=== PATIENT | male | born 1955 | race Caucasian/White ===

== ENCOUNTER 2016-10-28 15:21 | Outpatient (CLI) | END 2016-10-28 15:22 | disposition home or self-care (01) | LOC: LAB 15:21 | PROVIDERS: ATTEND Family Medicine | DX: R19.7 Diarrhea, unspecified (principal) ==

== ENCOUNTER 2017-05-17 16:48 | Emergency (ER) ==
[2017-05-17 16:55] VITALS: BP 166/96; TEMP 98.7; BMI 20.7
[2017-05-17] MEDS ORDERED: LEVAQUIN PO STA (17:26)
--- NOTE | 2017-05-17 17:31 | ED.PDOC ---
General ED Provider: Dr. PIERRE RIVAS Chief Complaint: Sore Throat Stated Complaint: flu like symptoms Time Seen by Physician: 17:00 (seen with mat at all times . his also has similar cold congestion in ED ) Mode of Arrival: Walk-In Information Source: Patient Exam Limitations: No limitations Primary Care Provider: MARILU JOSE Referred to ED by: Other ( WITH COLD SYMP ) Nursing and Triage Documentation Reviewed and Agree: Yes Reviewed sepsis parameters & appropriate labs ordered?: Yes System Inflammatory Response Syndrome: Not Applicable Sepsis Protocol: For patient's 13 years and over: Temp is 96.8 and below OR 101 and greater Pulse >90 BPM Resp >20/minute Acutely Altered Mental Status Are patient's symptoms suggestive of a new infection, such as: -Pneumonia -Skin, Soft Tissue -Endocarditis -UTI -Bone, Joint Infection -Implantable Device -Acute Abdominal Infection -Wound Infection -Meningitis -Blood Stream Catheter Infection -Unknown Respiratory Complaint Exam - Respiratory Complaint/Exam Onset/Duration: flu like symptoms x 3 days Symptoms Are: Still present Timing: Intermittent Initial Severity: Mild Current Severity: Mild Location: Nose, Throat, Chest Character: Reports: Non-productive cough Aggravating: Reports: URI Alleviating: Reports: None Associated Signs and Symptoms: Reports: Fever (no temp taken), URI, Nasal congestion. Denies: Rapid breathing, Dyspnea, Chills, Chest pain, Pleuritic chest pain, Wheezing, Hemoptysis, Dizziness, Calf pain, Calf swelling, Edema, Hoarseness, Sinus discomfort, Vomiting, Sore throat, Weight loss, Decreased oral intake, Increased thirst, Increased appetite, Increased urination History of Healthcare-Acquired Pneumonia: No Related Surgical History: Reports: None Pulmonary Embolism Risk Factors: None Review of Systems - Review Of Systems Constitutional: Reports: Chills, Malaise Eyes: Reports: No symptoms Ears, Nose, Mouth, Throat: Reports: No symptoms Respiratory: Reports: Cough Cardiac: Reports: No symptoms GI: Reports: No symptoms : Reports: No symptoms Musculoskeletal: Reports: No symptoms Skin: Reports: No symptoms Neurological: Reports: No symptoms Endocrine: Reports: No symptoms Hematologic/Lymphatic: Reports: No symptoms All Other Systems: Reviewed and Negative Past Medical History - Past Medical History Previously Healthy: Yes Endocrine: Reports: None Cardiovascular: Reports: None Respiratory: Reports: None Hematological: Reports: None Gastrointestinal: Reports: None Genitourinary: Reports: None Neuro/Psych: Reports: None Musculoskeletal: Reports: None Cancer: Reports: None - Surgical History General Surgical History: Reports: None - Family History Family History: Reports: None - Social History Smoking Status: Never smoker Hx Substance Use: No Alcohol Screening: Occasionally Physical Exam - Physical Exam Appearance: Well-appearing Eyes: MARGY, EOMI, Conjunctiva clear ENT: Ears normal, Nose normal, Oropharynx normal Respiratory: Rhonchi Cardiovascular: RRR, Pulses normal, No rub, No murmur GI/: Soft, Nontender, No masses, Bowel sounds normal, No Organomegaly Musculoskeletal: Normal strength, ROM intact, No edema, No calf tenderness Skin: Warm, Dry, Normal color Neurological: Sensation intact, Motor intact, Reflexes intact, Cranial nerves intact, Alert, Oriented Psychiatric: Affect appropriate, Mood appropriate Critical Care Note - Critical Care Note Total Time (mins): 0 Course - Course Orders, Labs, Meds: Orders Category Date Time Status MOLECULAR FLU A/B Stat LAB 05/17/17 17:25 Uncollected MOLECULAR GROUP A STREP Stat LAB 05/17/17 17:25 Uncollected Levofloxacin [Levaquin] MEDS 05/17/17 17:26 Stat 500 mg PO ONCE STA CHEST, 1V AP ONLY Stat RADS 05/17/17 17:28 Ordered Medications Discontinued Medications Generic Name Dose Route Start Last Admin Trade Name Reubenq PRN Reason Stop Dose Admin Levofloxacin 500 mg 05/17/17 17:26 Levaquin PO 05/17/17 17:27 ONCE STA Vital Signs: Temp Pulse Resp BP Pulse Ox 05/17/17 16:48 98.7 F 60 20 166/96 H 96 Departure - Departure Time of Disposition: 06:30 (PT REFUSED CHEST XRAY. JARED PEARSON WAS PRESENT AT ALL TIMES ) Disposition: HOME SELF-CARE Discharge Problem: Viral syndrome, Bronchitis Instructions: Bronchospasm (ED), Acute Bronchitis (ED), Wheezing (ED), How Your Lungs Work (ED) Condition: Good Pt referred to PMD for follow-up: Yes Additional Instructions: Please call your Family Physician as soon as possible to schedule a follow-up appointment. YOUR COUGH SYRUP MMAY BEE TAKEN TONIGHT OTHER MEDS IN AM Allergies/Adverse Reactions: Allergies acetaminophen [From Lortab] Adverse Reaction (Verified 05/17/17 16:57) hydrocodone [From Lortab] Adverse Reaction (Verified 05/17/17 16:57) Penicillins Adverse Reaction (Verified 05/17/17 16:57) promethazine [From Phenergan] Adverse Reaction (Verified 05/17/17 16:57) Home Medications: Ambulatory Orders 1 [Unobtainable] 05/17/17
[2017-05-17] MEDS ORDERED: DECADRON 4 MG/ML SDV IM STA (17:34)
== END 2017-05-17 18:10 | disposition home or self-care (01) ==
LOC: ED 16:48
DX: B34.9 Viral infection, unspecified (principal); J40 Bronchitis, not specified as acute or chronic
CPT/HCPCS: 87502; 87651; 96372; 99283

== ENCOUNTER 2018-06-23 10:59 | Outpatient (CLI) | payer BC, OTHER ==
--- NOTE | 2018-06-23 13:50 | DI ---
EXAM: Two views of the chest. History: Cough. Comparison: Chest radiograph 05/07/2012 Findings: Heart size is normal. No focal consolidation. No appreciable pleural fluid and no pneumo thorax. Pacer device. Postsurgical changes of the left clavicle. Coronary artery calcifications or stent. Hardware within the right humerus Impression: 1. No acute cardiopulmonary process. 2. Coronary artery disease
== END 2018-06-23 11:00 | disposition home or self-care (01) ==
LOC: RAD 10:59
PROVIDERS: ATTEND Family Medicine
DX: R05 Cough (principal)